=== PATIENT | female | born 1955 | race Caucasian/White ===

== ENCOUNTER → 2016-12-26 | Outpatient (CLI) | payer BC | LOC: CIMAGING 08:03 | PROVIDERS: ATTEND Family Medicine | DX: Z12.31 Encounter for screening mammogram for malignant neoplasm of breast (principal); R92.8 Other abnormal and inconclusive findings on diagnostic imaging of breast | CPT/HCPCS: G0202 ==

== ENCOUNTER → 2017-01-11 | Outpatient (CLI) | payer BC, MEDICAID | LOC: CIMAGING 13:24 | PROVIDERS: ATTEND Family Medicine | DX: Z12.39 Encounter for other screening for malignant neoplasm of breast (principal); R92.8 Other abnormal and inconclusive findings on diagnostic imaging of breast | CPT/HCPCS: G0206 ==

== ENCOUNTER 2018-05-31 17:11 | Observation (INO) | payer MEDICAID ==
[2018-05-31] MEDS ORDERED: NS 1,000 ML IV ONE ×2 (17:27)
[2018-05-31] MEDS ORDERED: DIAZEPAM 10 MG/2 ML SYR IVP ONE ×3 (17:37→18:17)
--- NOTE | 2018-05-31 17:49 | EDPHY ---
H & P Stated Complaint: states fever this past week, +E.coli-treated with keflex,RAO- spasm Time Seen by Provider: 05/31/18 17:20 HPI/ROS: This patient complains of neck muscle spasms though very painful and become more frequent and intense over the past day. She explains that she has had this intermittently for the past 3 days in the setting of a UTI. She was initially diagnosis cystitis 5 days ago started on Macrobid but had worsening symptoms with fever so came here for evaluation 2 days prior to this visit and was afebrile at that time but had still positive UA and reported fevers at home. I offered IV in further workup but she preferred to simply switch to an oral antibiotic perforated for pyelonephritis. Started on Keflex and reports compliance with that. She is also noted to have blepharitis at that time to the right upper eyelid and supraorbital region immediately superior to the eyelid without evidence of orbital cellulitis at that time. She explains that the neck pain feels like musculature that spasm intermittently. She had relief of this pain from a combination of ibuprofen and Tylenol until this evening when for the 1st time despite taking ibuprofen Tylenol shortly prior to arrival she still has severe neck pain and spasms. She also reports ongoing fevers and some chills despite compliance with the Keflex and erythromycin ointment that was prescribed for the blepharitis. She reports resolution of the redness around her right eye. Her brought her in by private vehicle for evaluation. ROS: Ongoing fevers and chills. The patient also notes significant fatigue over the past 24-48 hours. HEENT: Redness around right eye persists has resolved on Keflex and erythromycin ointment, but she still has mild edema and she reports onset of conjunctival injection and mild eye discharge No vision changes. Neurological: No confusion. No focal numbness tingling weakness. She denies headache but reports that the neck pain extends into the occiput a bit. Integumentary: No new rash. She has diaphoresis this evening. Pulmonary: She reports a dry cough over the past 3-4 days. No hemoptysis. No pleuritic pain or dyspnea. Cardiovascular: No lightheadedness GI: No belly pain. She does report mild nausea but no vomiting. Normal bowel movements. : No flank pain, no vaginal discharge, she does still have mild dysuria. Musculoskeletal: No midline neck or back pain 10 point review of symptoms is performed and otherwise negative with exception of pertinent positives and negatives listed in HPI and ROS Source: Patient, Family (Her , Bret also provides history) Exam Limitations: No limitations - Medical/Surgical History Hx Asthma: No Hx Chronic Respiratory Disease: No Hx Diabetes: No Hx Cardiac Disease: No Hx Renal Disease: No Hx Cirrhosis: No Hx Alcoholism: No Hx HIV/AIDS: No Hx Splenectomy or Spleen Trauma: No Other PMH: hysterectomy,ovarian cyst,UTI's,liver hematoma - Family History Significant Family History: No pertinent family hx - Social History Smoking Status: Former smoker Alcohol Use: Rarely Drug Use: None - Physical Exam Exam: General Appearance: Alert, no distress. Eyes: Pupils equal and round. Mild conjunctival injection to the right eye with yellow discharge. She still has mild upper eyelid erythema that extends slightly to the supraorbital region on the right more than left, with no proptosis. ENT, Mouth: Mucous membranes moist. Ears clear bilaterally oropharynx is clear Neck: Patient has tenderness the paraspinous musculature intermittently has muscle spasms. She winces from this pain. While she has muscle stiffness she does not seem to have actual meningismus on exam and Kernig's and Brudzinski's tests are negative. Respiratory: There are no retractions, lungs are clear to auscultation with dry intermittent cough Cardiovascular: Tachycardic with no murmur gallop or rub Gastrointestinal: Abdomen is soft and nontender, no masses, bowel sounds normal. Skin: Warm and dry, no rashes except for periorbital findings listed above. Neuro: GCS 15 with no focal deficits Musculoskeletal: Atraumatic normal Extremities are symmetrical, full range of motion. Psychiatric: Mood and affect are normal DIFFERENTIAL DIAGNOSIS: After history and physical exam differential diagnosis was considered for gram-negative sepsis, neck muscle strain, cervical disc disease, meningitis, ongoing pyelonephritis Constitutional: Initial Vital Signs Temperature (C) 36.7 C 05/31/18 17:17 Heart Rate 114 H 05/31/18 17:17 Respiratory Rate 16 05/31/18 17:17 Blood Pressure 135/84 H 05/31/18 17:17 O2 Sat (%) 95 05/31/18 17:17 O2 Delivery Mode Room Air O2 (L/minute) 2 Allergies/Adverse Reactions: No Known Allergies Allergy (Verified 05/31/18 17:16) Home Medications: Medication Instructions Recorded Cephalexin [Keflex (*)] 500 mg PO TID #21 cap 05/29/18 Erythromycin 0.5% 1 craig RTEYE BID #5 g 05/29/18 Medical Decision Making - Diagnostics Imaging Results: Imaging Impressions Chest X-Ray 05/31/18 18:46 Impression: Stable negative chest. Two view chest x-ray: Normal by my interpretation Imaging: I viewed and interpreted images myself Procedures: Procedure: Lumbar puncture. Indication: Fevers, neck stiffness, After verbal informed consent from patient explaining the risks including infection, bleeding, and neurologic damage, a lumbar puncture was performed after the patient was prepped and draped in the usual fashion. Patient is placed in her left side knee toward chest The back was anesthetized with 1% lidocaine. Approximately 4 cc of clear fluid was obtained with a 20 gauge spinal needle at the L4-5 interspace. Opening pressure was not obtained. There were no complications. The procedure was performed by myself. ED Course/Re-evaluation: IV normal saline bolus Valium 5 mg IV for neck muscle spasm with partial relief from 8/10 to 6/10 followed by 2.5 mg of additional Valium with further relief. This was followed by 25 mcg of fentanyl prior to lumbar puncture for analgesia with further relief of neck pain. Discussion: This patient most likely has urosepsis with myalgias muscle spasms in her neck despite compliance with Keflex. However initial point of care urinalysis here is not remarkable. She also has cough, mild periorbital cellulitis/blepharitis. Given her cluster of symptoms including prominent neck pain, rigors performed lumbar puncture with clear CSF-lab results still pending. Reviewed her urine culture which shows pansensitive E coli. Urinalysis from the hospital does reveal ongoing pyuria and bacteria. I discussed the case with Dr. Eric Watts on-call for Infectious Disease who agreed with the ceftriaxone that was given in terms of treatment plan and recommends holding on any further antibiotics (but recommends 2nd gram of Ceftriaxone to cover Pot. CSF infection) until CSF results of returned. The patient and her are comfortable with plan for observation admission or further infectious workup is completed. I spoke with Dr. Gaston Villa-hospitalist who accepts patient for admission for observation bed with CSF results pending High temperature after arrival here of 37.9. 2 L IV fluid with resolution of tachycardia. Patient's white count is normal Patient is transferred via private vehicle driving at 8:40 p.m. In stable condition. Answered all their questions regarding current diagnoses and treatment plan - Data Points Laboratory Results: Laboratory Results 05/31/18 17:45 05/31/18 05/31/18 05/31/18 17:55 17:52 17:45 WBC 9.28 10^3/uL 10^3/uL (3.80-9.50) RBC 4.80 10^6/uL 10^6/uL (4.18-5.33) Hgb 14.4 g/dL g/dL (12.6-16.3) Hct 40.5 % % (38.0-47.0) MCV 84.4 fL fL (81.5-99.8) MCH 30.0 pg pg (27.9-34.1) MCHC 35.6 g/dL g/dL (32.4-36.7) RDW 12.7 % % (11.5-15.2) Plt Count 159 10^3/uL 10^3/uL (150-400) MPV 11.8 fL H fL (8.7-11.7) Neut % (Auto) Pending Lymph % (Auto) Pending [place] % (Auto) Pending Eos % (Auto) Pending Baso % (Auto) Pending Nucleat RBC Rel Count Pending Absolute Neuts (auto) Pending Absolute Lymphs (auto) Pending Absolute Monos (auto) Pending Absolute Eos (auto) Pending Absolute Basos (auto) Pending Absolute Nucleated RBC Pending Immature Gran % Pending Immature Gran # Pending Platelet Estimate Pending PT INR APTT POC Sodium 137 mEq/L mEq/L (135-145) POC Potassium 3.9 mEq/L mEq/L (3.3-5.0) POC Chloride 100.0 mEq/L mEq/L (97-110) POC Total CO2 21 mEq/L L mEq/L (22-31) POC BUN 18 mg/dL mg/dL (7-23) POC Creatinine 1.0 mg/dL mg/dL (0.6-1.0) POC Glucose 188 mg/dL H mg/dL (70-100) POC Lactic Acid Darius 1.9 mmol/L mmol/L (0.7-2.1) POC Calcium 10.2 mg/dL mg/dL (8.5-10.4) Urine Color Urine Appearance Urine pH Ur Specific [place] Urine Protein Urine Ketones Urine Blood Urine Nitrate Urine Bilirubin Urine Urobilinogen Ur Leukocyte Esterase Urine RBC Urine WBC Ur Epithelial Cells Urine Bacteria Hyaline Casts Urine Mucus Urine Glucose CSF Tube Number CSF Appearance CSF Color CSF Supernatant CSF WBC CSF RBC CSF Glucose CSF Total Protein 05/31/18 05/31/18 05/31/18 17:45 17:36 17:36 WBC RBC Hgb Hct MCV MCH MCHC RDW Plt Count MPV Neut % (Auto) Lymph % (Auto) [place] % (Auto) Eos % (Auto) Baso % (Auto) Nucleat RBC Rel Count Absolute Neuts (auto) Absolute Lymphs (auto) Absolute Monos (auto) Absolute Eos (auto) Absolute Basos (auto) Absolute Nucleated RBC Immature Gran % Immature Gran # Platelet Estimate PT 13.5 SEC SEC (12.0-15.0) INR 1.01 (0.83-1.16) APTT 41.1 SEC H SEC (23.0-38.0) POC Sodium POC Potassium POC Chloride POC Total CO2 POC BUN POC Creatinine POC Glucose POC Lactic Acid Darius POC Calcium Urine Color YELLOW Urine Appearance HAZY Urine pH 5.0 (5.0-7.5) Ur Specific [place] 1.015 (1.002-1.030) Urine Protein 1+ H (NEGATIVE) Urine Ketones NEGATIVE (NEGATIVE) Urine Blood 3+ H (NEGATIVE) Urine Nitrate NEGATIVE (NEGATIVE) Urine Bilirubin NEGATIVE (NEGATIVE) Urine Urobilinogen NEGATIVE EU EU (0.2-1.0) Ur Leukocyte Esterase NEGATIVE (NEGATIVE) Urine RBC 25-50 /hpf H /hpf (0-3) Urine WBC 5-10 /hpf H /hpf (0-3) Ur Epithelial Cells TRACE /lpf /lpf (NONE-1+) Urine Bacteria TRACE /hpf H /hpf (NONE SEEN) Hyaline Casts 1-5 /lpf /lpf (0-1) Urine Mucus TRACE /lpf /lpf (NONE-1+) Urine Glucose NEGATIVE (NEGATIVE) CSF Tube Number Pending CSF Appearance Pending CSF Color Pending CSF Supernatant Pending CSF WBC Pending CSF RBC Pending CSF Glucose Pending CSF Total Protein Pending Cerebral spinal fluid results are pending Medications Given: Discontinued Medications Diazepam (Valium) 5 mg IVP EDNOW ONE Stop: 05/31/18 17:38 Last Admin: 05/31/18 18:06 Dose: Not Given Diazepam (Valium) 5 mg IVP EDNOW ONE Stop: 05/31/18 17:58 Last Admin: 05/31/18 18:02 Dose: 5 mg Diazepam (Valium) 5 mg IVP EDNOW ONE Stop: 05/31/18 18:18 Last Admin: 05/31/18 18:22 Dose: 5 mg Fentanyl (Sublimaze) 50 mcg IVP EDNOW ONE Stop: 05/31/18 18:18 Last Admin: 05/31/18 18:25 Dose: 25 mcg Sodium Chloride (Ns) 1,000 mls @ 0 mls/hr IV ONCE ONE; Wide Open PRN Reason: Protocol Stop: 05/31/18 17:28 Last Admin: 05/31/18 17:55 Dose: 1,000 mls Sodium Chloride (Ns) 1,000 mls @ 0 mls/hr IV ONCE ONE; Wide Open PRN Reason: Protocol Stop: 05/31/18 17:28 Last Admin: 05/31/18 18:30 Dose: 1,000 mls Ceftriaxone Sodium/Dextrose (Rocephin 1 Gm (Premix)) 50 mls @ 100 mls/hr IV EDNOW ONE PRN Reason: Protocol Stop: 05/31/18 18:06 Last Admin: 05/31/18 18:13 Dose: 50 mls Ceftriaxone Sodium/Dextrose (Rocephin 1 Gm (Premix)) 50 mls @ 100 mls/hr IV EDNOW ONE PRN Reason: Protocol Stop: 05/31/18 19:30 Last Admin: 05/31/18 19:11 Dose: 50 mls Point of Care Test Results: Chemistry 05/31/18 17:52 POC Sodium 137 mEq/L mEq/L (135-145) POC Potassium 3.9 mEq/L mEq/L (3.3-5.0) POC Chloride 100.0 mEq/L mEq/L (97-110) POC Total CO2 21 mEq/L L mEq/L (22-31) POC BUN 18 mg/dL mg/dL (7-23) POC Creatinine 1.0 mg/dL mg/dL (0.6-1.0) POC Glucose 188 mg/dL H mg/dL (70-100) POC Calcium 10.2 mg/dL mg/dL (8.5-10.4) Blood Gas/Lactic Acid-Venous 05/31/18 17:55 POC Lactic Acid Darius 1.9 mmol/L mmol/L (0.7-2.1) Influenza PCR Flu Nasal Swab Collection Date 05/31/18 Flu Nasal Swab Collection Time 18:47 Influenza A Result Not Detected Influenza B Result Not Detected Urine Dip Collection Date 05/31/18 Collection Time 17:45 Specific [place] (1.002-1.030) 1.015 PH (5.0-7.5) 5.5 Leukocytes (Negative) Negative Nitrites (Negative) Negative Protein (Negative) 2+ Glucose (Negative) Negative Ketones (Negative) Negative Urobilnogen (0.2-1.0 EU) 0.2 Bilirubin (Negative) Negative Blood (Negative) 2+ Departure - Departure Disposition: [facility]patient Acute Clinical Impression: Rigors, Neck pain, Cough, Pyelonephritis Conjunctivitis Qualifiers: Conjunctivitis type: acute Acute conjunctivitis type: unspecified Laterality: bilateral Qualified Code(s): H10.33 - Unspecified acute conjunctivitis, bilateral Condition: Fair
[2018-05-31] MEDS ORDERED: DIAZEPAM 5 MG/ML 1 ML SYR ONE ×2 (17:51→18:19)
[2018-05-31] MEDS ORDERED: fentaNYL 100 MCG/2 ML INJ IVP ONE (18:17)
[2018-05-31 20:21] LABS: PLATELET COUNT 159 10^3/uL (150-400)
[2018-05-31 20:29] LABS: INR 1.01 (0.83-1.16); PROTIME(PATIENT) 13.5 SEC (12.0-15.0)
[2018-05-31] MEDS ORDERED: NS 1,000 ML IV SCH (22:30)
[2018-05-31] MEDS ORDERED: ONDANSETRON 4 MG/2 ML VIAL IVP PRN (22:30)
[2018-05-31] MEDS ORDERED: IBUPROFEN 200 MG TAB PO PRN (22:30)
[2018-05-31] MEDS ORDERED: ONDANSETRON DISINTEGRATING 4 MG TAB PO PRN (22:30)
[2018-05-31] MEDS ORDERED: HYDROCODONE/APAP 5/325 TAB PO PRN (22:30)
[2018-05-31] MEDS ORDERED: CYCLOBENZAPRINE 10 MG TAB PO PRN (23:51)
[2018-05-31] MEDS ORDERED: KETOROLAC 15 MG/1 ML SDV IVP PRN (23:53)
--- NOTE | 2018-06-01 00:09 | PDGENHP ---
History and Physical - Chief Complaint Fever, neck pain - History of Present Illness Source-patient provides history and appears reliable. Case discussed with accepting hospitalist. EMR was also reviewed. HPI - this is a pleasant 62-year-old female who is otherwise generally healthy presents emergency department at [facility] for the 2nd time this week with complaints of persistent fevers. Patient reports that 7-8 days ago she initially was experiencing some urinary symptoms including complaints of urine odor, frequency and bladder pain. Patient has a previous history of recurrent UTI with E coli. She saw her PCP 5 days ago and was started on Macrobid. Culture from 05/25/2018 grew pansensitive E coli. Three days later patient again developed fevers and chills and so she presented to [facility] where her antibiotics were changed to Keflex. Additionally patient had some complaints of eye soreness and was diagnosed with blepharitis so started on erythromycin ointment. Patient reports compliance with her antibiotics as prescribed. She returned to the emergency department today however as she began to feel quite unwell again and developed a fever at home. Additionally patient reports that she has been experiencing significant neck spasms and headache. She did see outside services including acupuncture which did help temporarily however today her pain spasms were more severe than ever. In the ED, patient received 2 g total of Rocephin and subsequent underwent an LP that returned negative. Patient denies any flank pain. No associated nausea or vomit she has had increased fatigue and generalized weakness. History Information - Allergies/Home Medication List Allergies/Adverse Reactions: No Known Allergies Allergy (Verified 05/31/18 17:16) Home Medications: Acetaminophen [Tylenol ES 500 mg (*)] 1,000 mg PO Q12H PRN 05/31/18 [Last Taken 05/31/18 ALT WITH IBUPROFEN] Cholecalciferol Vit D3 [Vitamin D3 (*)] 2,000 units PO DAILY 05/31/18 [Last Taken Unknown] Herbals/Supplements -Info Only 1 ea PO DAILY 05/31/18 [Last Taken Unknown] Ibuprofen [Motrin (*)] 600 mg PO Q12H 05/31/18 [Last Taken 05/31/18 ALT WITH TYLENOL] Multivitamins [Multivitamin (*)] 1 each PO DAILY 05/31/18 [Last Taken Unknown] I have personally reviewed and updated: family history, medical history, social history, surgical history - Past Medical History Additional medical history: History of UTIs. Liver hematoma - Surgical History Additional surgical history: Ovarian cystectomy age 20s. Hysterectomy with single oophorectomy - Family History Additional family history: mother - copd, alive in her 90s. father - copd, etoh - Social History Smoking Status: Former smoker Alcohol Use: Rarely Drug Use: None Additional social history: . lives with . COR - FULL. Review of Systems Review of Systems: ROS: 10pt was reviewed & negative except for what was stated in HPI & below Constitutional: Reports: chills, fever, other EENMT: Reports: blurred vision, eye pain, other (occasional tonsillar stones). Denies: sore throat, throat swelling Cardiac: Reports: no symptoms Respiratory: Reports: cough. Denies: shortness of breath Gastrointestinal: Reports: no symptoms Genitourinary: Reports: frequency. Denies: burning, flank pain, urgency Muscolosketal: Reports: neck pain, other (Neck spasm) Skin: Reports: no symptoms Neurological: Reports: anxiety, weakness (Generalized weakness) Hematologic/Lymphatic: Reports: no symptoms Physical Exam Physical Exam: Selected Entries 05/31/18 17:17 Heart Rate 114 H Respiratory 16 Rate O2 Sat (%) 95 Temperature (C) 36.7 C Blood Pressure 135/84 H Mean Arterial 101 H Pressure (MAP) O2 Delivery Room Air Mode Temperature Oral Source Temp Pulse Resp BP Pulse Ox 37.6 C 99 16 115/86 H 96 05/31/18 23:16 05/31/18 23:16 05/31/18 23:16 05/31/18 23:16 05/31/18 23:16 Constitutional: no apparent distress, appears nourished, other (NAD. Patient is ambulating back from the bathroom when I enter the room with normal gait. She lays down in bed and has intermittent complaints is severe spasms in her neck.) Eyes: PERRL, anicteric sclera, EOMI, other (Mild conjunctival injection without drainage both eyes.), No scleral injection Ears, Nose, Mouth, Throat: other (Slightly tacky membranes. No nasal discharge. ), No poor dentition Cardiovascular: regular rate and rhythym, no murmur, rub, or gallop, No edema Peripheral Pulses: 2+: dorsalis-pedis (R), dorsalis-pedis (L) Respiratory: no respiratory distress, no rales or rhonchi, other (Patient with intermittent cough during exam. Dry nonproductive.) Gastrointestinal: normoactive bowel sounds, soft, non-tender abdomen, no palpable masses, No tenderness, No guarding, No distension Genitourinary: no bladder tenderness, No ortiz in urethra Skin: warm, normal color, no rashes or abrasions Musculoskeletal: full muscle strength, muscular tenderness (Patient with tenderness and spasms in the posterior neck), other (Patient sits up independently. Gait is normal.), No generalized weakness Neurologic: AAOx3, sensation intact bilaterally, other (Nonfocal exam.), No facial droop Psychiatric: interacting appropriately, not encephalopathic, thought process linear, anxious, other (Patient is pleasant and cooperative.) Lab Data & Imaging Review 05/31/18 17:45 WBC 9.28 10^3/uL (3.80-9.50) 05/31/18 17:45 RBC 4.80 10^6/uL (4.18-5.33) 05/31/18 17:45 Hgb 14.4 g/dL (12.6-16.3) 05/31/18 17:45 Hct 40.5 % (38.0-47.0) 05/31/18 17:45 MCV 84.4 fL (81.5-99.8) 05/31/18 17:45 MCH 30.0 pg (27.9-34.1) 05/31/18 17:45 MCHC 35.6 g/dL (32.4-36.7) 05/31/18 17:45 RDW 12.7 % (11.5-15.2) 05/31/18 17:45 Plt Count 159 10^3/uL (150-400) 05/31/18 17:45 MPV 11.8 fL (8.7-11.7) H 05/31/18 17:45 Neut % (Auto) Not Reported 05/31/18 17:45 Lymph % (Auto) Not Reported 05/31/18 17:45 [place] % (Auto) Not Reported 05/31/18 17:45 Eos % (Auto) Not Reported 05/31/18 17:45 Baso % (Auto) Not Reported 05/31/18 17:45 Nucleat RBC Rel Count Not Reported 05/31/18 17:45 Absolute Neuts (auto) Not Reported 05/31/18 17:45 Absolute Lymphs (auto) Not Reported 05/31/18 17:45 Absolute Monos (auto) Not Reported 05/31/18 17:45 Absolute Eos (auto) Not Reported 05/31/18 17:45 Absolute Basos (auto) Not Reported 05/31/18 17:45 Absolute Nucleated RBC Not Reported 05/31/18 17:45 Immature Gran % Not Reported 05/31/18 17:45 Seg Neutrophils % 51.0 % 05/31/18 17:45 Band Neutrophils % 38.0 % 05/31/18 17:45 Lymphocytes % 5.0 % 05/31/18 17:45 Monocytes % 6.0 % 05/31/18 17:45 Eosinophils % 0.0 % 05/31/18 17:45 Basophils % 0.0 % 05/31/18 17:45 Metamyelocytes % 0.0 % 05/31/18 17:45 Myelocytes % 0.0 % 05/31/18 17:45 Promyelocytes % 0.0 % 05/31/18 17:45 Blast Cells % 0.0 % 05/31/18 17:45 Immature Gran # Not Reported 05/31/18 17:45 Absolute Seg Neuts 4.73 10^3/uL (1.70-6.50) 05/31/18 17:45 Absolute Band Neuts 3.53 10^3/uL (0.00-0.70) H 05/31/18 17:45 Absolute Lymphocytes 0.46 10^3/uL (1.00-3.00) L 05/31/18 17:45 Absolute Monocytes 0.56 10^3/uL (0.30-0.80) 05/31/18 17:45 Absolute Eosinophils 0.00 10^3/uL (0.03-0.40) L 05/31/18 17:45 Absolute Basophils 0.00 10^3/uL (0.02-0.10) L 05/31/18 17:45 Absolute Metamyelocyte 0.00 10^3/mL (0.00-0.00) 05/31/18 17:45 Absolute Myelocytes 0.00 10^3/mL (0.00-0.00) 05/31/18 17:45 Absolute Promyelocytes 0.00 10^3/uL (0.00-0.00) 05/31/18 17:45 Absolute Plasma Cells 0.00 10^3/uL (0.00-0.00) 05/31/18 17:45 Nucleated RBCs 0 /100 WBC (0-0) 05/31/18 17:45 Absolute Blast Cells 0.00 10^3/uL (0.00-0.00) 05/31/18 17:45 Plasma Cells % 0.0 % 05/31/18 17:45 Toxic Granulation PRESENT H 05/31/18 17:45 Platelet Estimate ADEQUATE (ADEQ) 05/31/18 17:45 Echinocytes 1+ H 05/31/18 17:45 PT 13.5 SEC (12.0-15.0) 05/31/18 17:45 INR 1.01 (0.83-1.16) 05/31/18 17:45 APTT 41.1 SEC (23.0-38.0) H 05/31/18 17:45 POC Sodium 137 mEq/L (135-145) 05/31/18 17:52 POC Potassium 3.9 mEq/L (3.3-5.0) 05/31/18 17:52 POC Chloride 100.0 mEq/L (97-110) 05/31/18 17:52 POC Total CO2 21 mEq/L (22-31) L 05/31/18 17:52 POC BUN 18 mg/dL (7-23) 05/31/18 17:52 POC Creatinine 1.0 mg/dL (0.6-1.0) 05/31/18 17:52 POC Glucose 188 mg/dL (70-100) H 05/31/18 17:52 POC Lactic Acid [place] 1.9 mmol/L (0.7-2.1) 05/31/18 17:55 POC Calcium 10.2 mg/dL (8.5-10.4) 05/31/18 17:52 Urine Color YELLOW 05/31/18 17:36 Urine Appearance HAZY 05/31/18 17:36 Urine pH 5.0 (5.0-7.5) 05/31/18 17:36 Ur Specific [place] 1.015 (1.002-1.030) 05/31/18 17:36 Urine Protein 1+ (NEGATIVE) H 05/31/18 17:36 Urine Ketones NEGATIVE (NEGATIVE) 05/31/18 17:36 Urine Blood 3+ (NEGATIVE) H 05/31/18 17:36 Urine Nitrate NEGATIVE (NEGATIVE) 05/31/18 17:36 Urine Bilirubin NEGATIVE (NEGATIVE) 05/31/18 17:36 Urine Urobilinogen NEGATIVE EU (0.2-1.0) 05/31/18 17:36 Ur Leukocyte Esterase NEGATIVE (NEGATIVE) 05/31/18 17:36 Urine RBC 25-50 /hpf (0-3) H 05/31/18 17:36 Urine WBC 5-10 /hpf (0-3) H 05/31/18 17:36 Ur Epithelial Cells TRACE /lpf (NONE-1+) 05/31/18 17:36 Urine Bacteria TRACE /hpf (NONE SEEN) H 05/31/18 17:36 Hyaline Casts 1-5 /lpf (0-1) 05/31/18 17:36 Urine Mucus TRACE /lpf (NONE-1+) 05/31/18 17:36 Urine Glucose NEGATIVE (NEGATIVE) 05/31/18 17:36 CSF Tube Number 4 05/31/18 17:36 CSF Appearance CLEAR (CLEAR) 05/31/18 17:36 CSF Color COLORLESS (COLORLESS) 05/31/18 17:36 CSF Supernatant COLORLESS (COLORLESS) 05/31/18 17:36 CSF WBC 0 /mm3 (0-5) 05/31/18 17:36 CSF RBC 2 /mm3 (0-0) H 05/31/18 17:36 CSF Glucose 70 mg/dL (50-75) 05/31/18 17:36 CSF Total Protein 40 mg/dL (12-60) 05/31/18 17:36 Imaging Review: PA and lateral chest. Clinical History: cough, fever Comparison Study: December 07, 2010. Findings: The lungs are clear. No pleural disease identified. Heart size is normal. Visualized osseous structures appear normal. Impression: Stable negative chest. Dictated By: Wyatt Cuellar MD Visualized and Interpreted Chest x-ray results: Yes Chest X-Ray results: no infiltrate Assessment & Plan Assessment: Pleasant 62-year-old female otherwise healthy who presents emergency department with complaints of persistent fevers and chills ongoing for the last several days despite 5 days of antibiotic therapy for UTI. #UTI - patient started on Macrobid 5 days ago. Transition to Keflex 3 days ago. Patient s/p 2 g of Rocephin received at [facility]. Her CSF fluid analysis does not suggest a meningitis. On exam patient has palpable spasms contributing to her neck pain. Will continue Rocephin at 1 g Q 24 hrs. Repeat urine cultures pending. Culture reviewed from 05/25/2018 positive for E coli pansensitive. AGUSTO on nitrofurantoin noted to be greater than 16. #Fever - patient without any measured temperatures during her visits. She has been taking Tylenol and ibuprofen for symptom control. She does not meet sepsis criteria at this time. She has blood cultures pending. #Rigors (Acute) - patient has had some shaking chills since admission. Plan as noted above. Supportive care. If her rigors should worsen and become quite severe may consider some Demerol however patient is requesting to try to treat her symptoms had avoidance of narcotics and sedatives as much as possible as she normally only takes vitamins and supplements. # Neck pain (Acute) - due to spasm. LP negative as noted above. K-pad, Toradol , Flexeril, [place] p.r.n. For pain. #Conjunctivitis (Acute) - continue patient's erythromycin. Her symptoms have been slowly improving. #Cough (Acute) - chest x-ray clear. Patient reports she has had this dry intermittent cough for the past year. She she notes occasional drainage and a history of occasional tonsillar stones. This could be related to some postnasal drip. She decline offer for antihistamine. FEN - IVF x 1 liter and after encourage oral hydration as tolerated. PPX - SCDs. lovenox. COR - FULL. Dispo - Admit to observation status pending preliminary cultures and monitor sx
[2018-06-01] MEDS: LORazepam 0.5 MG TAB PO PRN ×2 (00:50→01:18)
[2018-06-01] MEDS: ACETAMINOPHEN 325 MG TAB PO PRN ×2 (04:43→09:03)
[2018-06-01 05:08] LABS: PLATELET COUNT 141 10^3/uL (150-400)
--- NOTE | 2018-06-01 09:22 | ASMTCMCOM ---
CM Note CM Note Notes: Reviewed chart, no needs identified, no therapies ordered. Anticipate pt will dc home w/support of when medically stable. CM avialable for any changes. DC Plan: Independent Date Signed: 06/01/2018 09:21 AM Electronically Signed By:Janae Sampson RN
[2018-06-01 11:41] VITALS: BP 95/62
--- NOTE | 2018-06-01 15:31 | PDDCSUM ---
Discharge Summary Discharge Summary: Date of Admission: May 31, 2018 Date of Discharge: June 01, 2018 Discharge Diagnoses: Acute Cystitis Fever Muscle spasm of neck and suboccipital musculature Conjunctivitis, resolved Dry cough, likely secondary to postnasal drip Admission Diagnoses: Acute UTI Fever Rigors Neck pain Conjunctivitis Cough Consultants: None. Hospital Course: Patient is a 62-year-old female with history of UTIs and recent bacterial conjunctivitis who presented to the ED with spiking fevers and severe neck pain/ spasms which had been occurring for about 5 days prior to admission. She also had UTI symptoms for 7 days. She saw her outpatient PCP who gave her Macrobid for UTI, but after a couple days switched to Keflex when patient felt persistent fevers. Urine culture from that encounter grew E coli that was pansensitive. In the ED, pt underwent LP and CSF analysis was unremarkable. Cultures are preliminarily normal, but still pending from blood, eye, repeat urine, and CSF. Patient's neck spasm failed treatment with cyclobenzaprine, but responded to tizanidine. Patient was feeling better the next day and was recommended to follow up with PCP next week for ongoing evaluation and treatment. Physical Exam: Gen: alert, oriented, in NAD. : +bladder tenderness. No CVA tenderness bilaterally. Condition: Stable Discharged to: Home Pertinent tests/labs/imaging: Chest [id number]. Urine culture-weakly positive for UTI. Medications: Please see med rec form. Resume home meds. Special instructions: Follow up on culture results. Try neck stretches at home. Apply heat as needed. Try topical pain relief ointments such as CBD, [place] Am[place] , etc. Consider to get OMT in the outpatient setting if muscle spasms persist. Follow up: Follow up with PCP in 1 week.
== END 2018-06-01 15:10 | disposition home or self-care (01) ==
LOC: CED 17:11 → CEDHOLD 19:41 → F3E 21:15
PROVIDERS: ADMIT Student in an Organized Health Care Education/Training Program; ATTEND Student in an Organized Health Care Education/Training Program
DX: N30.00 Acute cystitis without hematuria (principal); M62.838 Other muscle spasm; H10.89 Other conjunctivitis; R05 Cough
CPT/HCPCS: 71046; G0378; 80048-PO; 83605-PO; 96365; J0696; J1885; J3010; J3360